=== PATIENT | male | born 1980 | race Caucasian/White ===

== ENCOUNTER 2018-02-11 12:24 | Emergency (ER) | payer OTHER ==
[~2018-02-11] VITALS: Ht 170.2 cm; Wt 122.0 kg
[~2018-02-11 12:24] MED LIST: ACETAMINOPHEN-1 EAC1 PO; BACTRIM DS TAB1 EACH PO; CEPHALEXIN 500500 M3 PO; CIPROFLOXACIN500 M1 PO; FLEXERIL PO; FLOMAX0.4 MG PO; HYDROCODONE-AP1 EAC6 PO; IBUPROFEN 200200 M1 PO; IBUPROFEN 800800 M1 PO; NORCO 5-325 TA1 EACH PO; PERCOCET 5-3251 EACH PO
[2018-02-11] MEDS ORDERED: ROBAXIN500 MG PO (13:31)
[2018-02-11] MEDS ORDERED: IBUPROFEN 800800 M1 PO (13:31)
[2018-02-11 13:55] VITALS: BP 155/80
== END 2018-02-11 13:56 | disposition home or self-care (01) ==
LOC: M.ERS 12:24
DX: G56.32 Lesion of radial nerve, left upper limb (principal); M77.8 Other enthesopathies, not elsewhere classified; F17.210 Nicotine dependence, cigarettes, uncomplicated

== ENCOUNTER 2019-03-04 06:21 | Emergency (ER) | payer OTHER ==
[~2019-03-04] VITALS: Ht 172.7 cm; Wt 117.9 kg
[~2019-03-04 06:21] MED LIST changes: +ROBAXIN500 MG PO
[2019-03-04 06:47] LABS: URINE BILIRUBIN NEGATIVE (Negative); URINE BLOOD 3+ (Negative); URINE CLARITY CLEAR; URINE COLOR YELLOW; URINE GLUCOSE-RANDOM NEGATIVE (Negative); URINE KETONES NEGATIVE (Negative); URINE LEUKOCYTES-REFLEX NEGATIVE (Negative); URINE NITRITE-REFLEX NEGATIVE (Negative); URINE PROTEIN TRACE (Negative); URINE SPECIFIC GRAVITY >= 1.030 (1.005-1.030); URINE UROBILINOGEN 0.2 E.U./dl (0.2-1.0)
[2019-03-04 07:01] LABS: SQUAMOUS 0-3 Few /LPF (0-3); URINE WBC-REFLEX 0-5 Rare /HPF (0-5)
[2019-03-04 07:02] LABS: URINE RBC 3-10 Few /HPF (0-2)
[2019-03-04 07:03] LABS: BACTERIA-REFLEX None Seen /HPF (None Seen); MUCUS >6 Heavy strn/LPF (None Seen)
[2019-03-04 07:04] LABS: CASTS None Seen /LPF (None Seen); CRYSTALS None Seen /LPF (None Seen)
[2019-03-04 07:40] LABS: ABSOLUTE EOSINOPHILS 0.1 thou/uL (0.0-0.7); ABSOLUTE MONOCYTES 0.8 thou/uL (0.0-1.2); ABSOLUTE NEUTROPHILS 6.1 thou/uL (1.6-8.1); BASOPHILS 0.3 %; EOSINOPHILS 1.2 %; HEMATOCRIT 46.9 % (42.0-52.0); MCH 29.1 pg (26.0-34.0); MCHC 34.1 g/dL (28.0-37.0); MCV 85.4 fL (80.0-100.0); MONOCYTES 10.4 %; NUCLEATED RBCS 0 /100WBC; PLATELET COUNT* 190 thou/uL (150-400); POLYS 76.1 %; RBC 5.49 mil/uL (4.50-6.00); RDW-CV 14.4 % (10.5-14.5)
[2019-03-04 08:01] LABS: CALCIUM 8.4 mg/dL (8.5-10.1); CREATININE 1.3 mg/dL (0.6-1.3); POTASSIUM 4.3 mmol/L (3.5-5.1)
[2019-03-04 08:14] LABS: ALBUMIN 3.7 g/dL (3.4-5.0); TOTAL BILIRUBIN 0.4 mg/dL (<0.1-1.0); TOTAL PROTEIN 7.9 g/dL (6.4-8.2)
[2019-03-04] MEDS ORDERED: CIPROFLOXACIN500 M1 PO (08:29)
[2019-03-04] MEDS ORDERED: FLOMAX0.4 MG PO (08:29)
[2019-03-04] MEDS ORDERED: PERCOCET PO (08:29)
[2019-03-04 08:41] VITALS: BP 144/105
== END 2019-03-04 08:42 | disposition home or self-care (01) ==
LOC: M.ERS 06:21
PROVIDERS: Emergency Medicine Emergency Medical Services
DX: N20.0 Calculus of kidney (principal); F17.200 Nicotine dependence, unspecified, uncomplicated; Z87.442 Personal history of urinary calculi

== ENCOUNTER 2020-01-08 21:58 | Emergency (ER) | payer OTHER ==
[~2020-01-08] VITALS: Ht 172.7 cm; Wt 136.1 kg
[~2020-01-08 21:58] MED LIST changes: +PERCOCET PO
[2020-01-08 23:56] VITALS: BP 150/75
== END 2020-01-08 23:56 | disposition left against medical advice (07) ==
LOC: M.ERS 21:58
DX: Z53.21 Procedure and treatment not carried out due to patient leaving prior to being seen by health care provider (principal)